=== PATIENT | female | born 1965 | race Caucasian/White ===

== ENCOUNTER 2023-11-18 11:47 | Emergency (ER) | payer BC, SELFPAY ==
[2023-11-18 11:50] VITALS: BP 107/66; PULSE 102; RESP 16; TEMP 36.7; O2SAT 97; BMI 31.2
[2023-11-18 12:39] VITALS: BP 111/57; PULSE 98; O2SAT 92
[2023-11-18] MEDS: sodium chloride 0.9% 1,000 ML 999 ML IV (12:52)
[2023-11-18] MEDS: ondansetron 2 mg/ML SDV 2 mL 4 MG IVP (12:53)
[2023-11-18 13:08] LABS: Basophils % 0.4 %; Eosinophils % 0.1 %; Hematocrit 39.4 % (36-47); Lymphocytes # 0.9 10^3/uL (0.8-4.8); Lymphocytes % 12.1 %; Mean Corpuscular HGB Conc 32.2 g/dL (30-55); Mean Corpuscular Hemoglobin 25.9 pg (27-33); Mean Corpuscular Volume 80.4 fl (85-98); Mean Platelet Volume 10.2 fL (7.4-10.4); Monocytes # 0.6 10^3/uL (0.2-0.9); Monocytes % 8.2 %; Neutrophils # 5.74 10^3/uL (1.8-7.7); Neutrophils % 78.8 %; Nucleated Red Blood Cells % 0 %; Platelet Count 322 10^3/cmm (157-399); Red Cell Distribution Width 14.4 % (12.1-15.1); White Blood Count 7.29 10^3/uL (3.29-11.43)
--- NOTE | 2023-11-18 13:08 | XR_ITS ---
WS: [id number] Portable AP semiupright chest, 11/18/2023 Clinical Data: dyspnea/cough Comparison: Portable chest, 11/12/2015 Findings: No nodules, masses or effusions are seen. The heart is normal. The pulmonary vascularity is not increased. No pneumonia or pneumothorax is seen. There are surgical clips overlying the left med iastinum at the level of the aortic arch. Monitor leads are on the chest wall. XR/XR chest 1V portable [id number] Impression: Negative chest.
[2023-11-18 13:10] VITALS: BP 95/52; PULSE 99; O2SAT 95
[2023-11-18 13:24] LABS: Alanine Aminotransferase 11 U/L (0-33); Albumin Level 4.2 g/dL (3.5-5.2); Alkaline Phosphatase 42 U/L (35-105); Anion Gap 19.2 (5-19); Aspartate Amino Transferase 18 U/L (0-32); Blood Urea Nitrogen 38 mg/dL (6-20); Carbon Dioxide 20 mmol/L (22-29); Chloride 95 mmol/L (98-107); Globulin 3.6 g/dL (1.3-4.6); Glucose 131 mg/dL (65-115); Osmolality Calculated 283 mOsm/kg (285-295); Potassium 3.2 mmol/L (3.5-5.1); Sodium 131 mmol/L (136-145); Total Bilirubin 0.2 mg/dL (0.15-1.2); Total Protein 7.8 g/dL (6.6-8.7)
--- NOTE | 2023-11-18 14:06 | W.ED.NAVMDI ---
HPI - Nausea/Vomiting/Diarrhea General: Chief complaint: Nausea/Vomiting/Diarrhea Stated complaint: n/v, diahrea Time Seen by Provider: 11/18/23 12:35 Source: patient Mode of arrival: ambulatory History of Present Illness: 58-year-old female presents emergency room for the last 3 days nausea vomiting and diarrhea chills sweats myalgias headache slight cough. Normally is not on oxygen on arrival was 88 to 92% requiring 2 L by nasal cannula to maintain oxygen sats in the mid 90s. No chest pain. No dysuria urgency or frequency. MD elicited complaint: nausea and vomiting Onset (ago): day(s) (3) Description of diarrhea: watery and semi-solid Associated nausea: Yes Associated abdominal pain: Yes Location of pain: Diffuse Pain consistency: intermittent Severity: mild Quality: cramping Exacerbating factors: eating Relieving factors: none Associated symtoms: Reports fatigue, anorexia, malaise, myalgias and nausea; Denies anxiety, bloating, change in vision, chest pain, cough, diaphoresis, decreased urine output, dizziness, dysuria, epistaxis, fecal incontinence, fevers/chills, headache(s), numbness, palpitations, rash, short of breath, syncope, tenesmus, tinnitus or weakness Review of Systems Const: Reports: fatigue and malaise; Denies: fever(s), chills or diaphoresis Eyes: Denies: change in vision ENMT: Denies: tinnitus or epistaxis Card: Denies: chest pain, palpitations or syncope Resp: Reports: dyspnea GI: Reports: abdominal pain, nausea, vomiting and diarrhea; Denies: bloating or fecal incontinence : Denies: dysuria, urinary frequency or urinary urgency Musc: Denies: neck pain or back pain Skin/Breast: Denies: rash Neuro: Denies: headache(s) or dizziness Psych: Denies: anxiety Physical Exam Const: GENERAL APPEARANCE: cooperative and comfortable ORIENTATION/CONSCIOUSNESS: Yes awake, Yes oriented to person, Yes oriented to place and Yes oriented to time HENMT: COMMON NORMALS: normocephalic, atraumatic and hearing grossly normal bilaterally HEAD & SCALP: normocephalic and atraumatic Resp: COMMON NORMALS: normal respiratory effort, No retractions, No use of accessory muscles and clear to auscultation bilaterally AUSCULTATION: clear to auscultation bilaterally Cardio: COMMON NORMALS: regular rate, regular rhythm and No murmurs present (Cardio) RATE: regular rate RHYTHM: regular rhythm GI: COMMON NORMALS: Soft to palpation and No hepatosplenomegaly present AUSCULTATION: Yes normoactive bowel sounds PALPATION: Yes Soft to palpation, No Tenderness to palpation present (GI), No Guarding due to palpation present (GI) and Yes No hepatosplenomegaly present Extremity: COMMON NORMALS: normal to inspection, capillary refill normal, no clubbing, cyanosis or edema, no calf tenderness and no pedal edema Neuro: SENSORIUM/ORIENTATION: Yes oriented to person, Yes oriented to place and Yes oriented to time Skin: COMMON NORMALS: no rashes or lesions noted GENERAL SKIN EXAM: no rashes or lesions noted Course Vital Signs: Vital signs: Vital Signs Temperature 98.7 F 11/18/23 16:46 Pulse Rate 96 11/18/23 16:46 Respiratory Rate 16 11/18/23 16:46 Blood Pressure 114/62 11/18/23 16:46 Pulse Oximetry 100 11/18/23 16:46 Oxygen Delivery Me thod Nasal Cannula 11/18/23 15:06 Oxygen Flow Rate 1 11/18/23 13:10 MDM - Nausea/Vomiting/Diarrhea Medical Decision Making Respiratory panel is negative. Initially when evaluating her at dissipated she may have COVID. Her creatinine is slightly elevated. She was given IV fluids she is feeling better. Will discharge her home clear liquid diet for the next 24 to 48 hours. Promethazine to use as needed follow-up with primary care she will need to recheck her creatinine in the next few days. Medical Records I reviewed the patient's medical records. Lab Data I reviewed the patient's lab results. 11/18/23 12:58 11/18/23 12:58 Radiology Impressions Chest X-Ray 11/18/23 13:08 Impression: Negative chest. Laboratory Results WBC 7.29 10^3/uL (3.29-11.43) 11/18/23 12:58 RBC 4.90 10^6/uL (3.85-5.65) 11/18/23 12:58 Hgb 12.70 g/dL (11.27-16.99) 11/18/23 12:58 Hct 39.4 % (36-47) 11/18/23 12:58 MCV 80.4 fl (85-98) L 11/18/23 12:58 MCH 25.9 pg (27-33) L 11/18/23 12:58 MCHC 32.2 g/dL (30-55) 11/18/23 12:58 RDW 14.4 % (12.1-15.1) 11/18/23 12:58 Plt Count 322 10^3/cmm (157-399) 11/18/23 12:58 MPV 10.2 fL (7.4-10.4) 11/18/23 12:58 Neut % (Auto) 78.8 % 11/18/23 12:58 Lymph % (Auto) 12.1 % 11/18/23 12:58 [place] % (Auto) 8.2 % 11/18/23 12:58 Eos % (Auto) 0.1 % 11/18/23 12:58 Baso % (Auto) 0.4 % 11/18/23 12:58 Neut # (Auto) 5.74 10^3/uL (1.8-7.7) 11/18/23 12:58 Lymph # (Auto) 0.9 10^3/uL (0.8-4.8) 11/18/23 12:58 [place] # (Auto) 0.6 10^3/uL (0.2-0.9) 11/18/23 12:58 Eos # (Auto) 0.0 10^3/uL (0.0-0.8) 11/18/23 12:58 Baso # (Auto) 0.0 10^3/uL (0.0-0.1) 11/18/23 12:58 Nucleated RBC % (auto) 0 % 11/18/23 12:58 Nucleated RBCs # 0.0 /100WBC 11/18/23 12:58 Sodium 131 mmol/L (136-145) L 11/18/23 12:58 Potassium 3.2 mmol/L (3.5-5.1) L 11/18/23 12:58 Chloride 95 mmol/L (98-107) L 11/18/23 12:58 Carbon Dioxide 20 mmol/L (22-29) L 11/18/23 12:58 Anion Gap 19.2 (5-19) H 11/18/23 12:58 BUN 38 mg/dL (6-20) H 11/18/23 12:58 Creatinine 1.6 mg/dL (0.5-0.9) H 11/18/23 12:58 GFR Calculation 33.0 mL/min (90-130) L 11/18/23 12:58 Glucose 131 mg/dL (65-115) H 11/18/23 12:58 Calculated Osmolality 283 mOsm/kg (285-295) L 11/18/23 12:58 Lactic Acid 1.0 mmol/L (0.5-2.2) 11/18/23 12:58 Calcium 10.0 mg/dL (8.5-10.5) 11/18/23 12:58 Total Bilirubin 0.2 mg/dL (0.15-1.2) 11/18/23 12:58 AST 18 U/L (0-32) 11/18/23 12:58 ALT 11 U/L (0-33) 11/18/23 12:58 Alkaline Phosphatase 42 U/L (35-105) 11/18/23 12:58 Total Protein 7.8 g/dL (6.6-8.7) 11/18/23 12:58 Albumin 4.2 g/dL (3.5-5.2) 11/18/23 12:58 Globulin 3.6 g/dL (1.3-4.6) 11/18/23 12:58 Urine Color Yellow (Yellow) 11/18/23 15:28 Urine Appearance Clear (CLEAR) 11/18/23 15:28 Urine pH 5 (5-7) 11/18/23 15:28 Ur Specific [place] 1.015 (1.005-1.030) 11/18/23 15:28 Urine Protein Neg (Negative) 11/18/23 15:28 Urine Glucose (UA) Norm (Normal) 11/18/23 15:28 Urine Ketones 1+ (Negative) H 11/18/23 15:28 Urine Blood Neg (Negative) 11/18/23 15:28 Urine Nitrate Negative (Negative) 11/18/23 15:28 Urine Bilirubin Neg (Negative) 11/18/23 15:28 Urine Urobilinogen Norm mg/dL (Negative) 11/18/23 15:28 Ur Leukocyte Esterase Negative (Negative) 11/18/23 15:28 Adenovirus (PCR) Not detected (NOT DETECT) 11/18/23 13:08 C. pneumoniae DNA (PCR) Not detected (NOT DETECT) 11/18/23 13:08 Coronavirus 229E (PCR) Not detected (NOT DETECT) 11/18/23 13:08 Human Metapneumovir PCR Not detected (NOT DETECT) 11/18/23 13:08 Influenza A (H1) PCR Not detected (NOT DETECT) 11/18/23 13:08 Influ A (H1/09) PCR Not detected (NOT DETECT) 11/18/23 13:08 Influenza A (H3) PCR Not detected (NOT DETECT) 11/18/23 13:08 Influenza Type A (PCR) Not detected (NOT DETECT) 11/18/23 13:08 Influenza Type B (PCR) Not detected (NOT DETECT) 11/18/23 13:08 M. pneumoniae (PCR) Not detected (NOT DETECT) 11/18/23 13:08 Parainfluenza 1 (PCR) Not detected (NOT DETECT) 11/18/23 13:08 Parainfluenza 2 (PCR) Not detected (NOT DETECT) 11/18/23 13:08 Parainfluenza 3 (PCR) Not detected (NOT DETECT) 11/18/23 13:08 Parainfluenza 4 (PCR) Not detected (NOT DETECT) 11/18/23 13:08 RSV Type A (PCR) Not detected (NOT DETECT) 11/18/23 13:08 RSV Type B (PCR) Not detected (NOT DETECT) 11/18/23 13:08 Entero/Rhino (PCR) Not detected (NOT DETECT) 11/18/23 13:08 SARS-CoV-2 (PCR) Not detected (NOT DETECT) 11/18/23 13:08 All radiology interpretation(s) finalized by discharge Discharge Plan Discharge Patient Disposition: Home Clinical Impression: Gastroenteritis Condition: Stable Prescriptions: New promethazine 25 mg tablet 25 mg PO Q6H PRN (Reason: nausea and vomiting) Qty: 20 0RF No Action atorvastatin 20 mg tablet 20 mg PO BEDTIME lisinopril-hydrochlorothiazide 20-12.5 mg tablet 1 tab PO DAILY paroxetine HCl 20 mg tablet 30 mg PO DAILY metformin 1,000 mg tablet 1,000 mg PO DAILY fenofibrate 160 mg tablet 160 mg PO DAILY Ozempic 2 mg/dose (8 mg/3 mL) pen injector 2 mg SUBCUT Q7D Discharge Orders: Discharge ED (Routine); Ordered 11/18/23 Ordered By: Rolan Butcher Discharge Diet: Clear Liquid Discharge Activity: Increase activity as tolerated Patient Instructions: Opioid Safety, Pain Management Activity Restrictions/Additional Instructions: Thank you for choosing [facility] for your healthcare needs today. It is very important that you follow up as instructed or that you return to the Emergency Department should you have concerns or if your condition changes or worsens in any way. You were seen today with complaints of nausea vomiting and generally not feeling well. Your white count was normal chest x-ray was normal your sodium and potassium were slightly low. Recommend increasing your fluid intake. Clear liquid diet for the next 24 to 48 hours then follow-up with your primary care doctor to recheck your kidney function within the next week. Coding Level of Care Code ED Tester Equipment for [facility]
[2023-11-18 15:04] LABS: Adenovirus Not Detected (NOT DETECT); Chlamydia Pneumoniae Not Detected (NOT DETECT); Coronavirus 229E,HKU1,NL63,OC4 Not Detected (NOT DETECT); Human Metapneumovirus Not Detected (NOT DETECT); Human Rhinovirus/Enterovirus Not Detected (NOT DETECT); Influenza A Not Detected (NOT DETECT); Influenza A H1 Not Detected (NOT DETECT); Influenza A H1-2009 Not Detected (NOT DETECT); Influenza A H3 Not Detected (NOT DETECT); Influenza B Not Detected (NOT DETECT); Mycoplasma Pneumoniae Not Detected (NOT DETECT); Parainfluenza Virus Type 1 Not Detected (NOT DETECT); Parainfluenza Virus Type 2 Not Detected (NOT DETECT); Parainfluenza Virus Type 3 Not Detected (NOT DETECT); Parainfluenza Virus Type 4 Not Detected (NOT DETECT); Respiratory Syncytial Virus A Not Detected (NOT DETECT); Respiratory Syncytial Virus B Not Detected (NOT DETECT); SARS-COV-2 Not Detected (NOT DETECT)
[2023-11-18 15:06] VITALS: BP 114/62; PULSE 96; O2SAT 100
[2023-11-18 15:30] VITALS: TEMP 37.1
[2023-11-18] MEDS: metoclopramide 5 mg/mL SDV 2 mL 10 MG IVP (15:30)
[2023-11-18] MEDS: sodium chloride 0.9% 500 ML 999 ML IV (15:39)
[2023-11-18 15:54] LABS: Add Urine Microscopic? NO; Charge for UA Resulting for Rev
[2023-11-18 16:20] LABS: Bilirubin Urine Neg (Negative); Blood Urine Neg (Negative); Glucose Urine UA Norm (Normal); Ketones Urine 1+ (Negative); Leukocyte Esterase Urine Negative (Negative); Nitrate Urine Negative (Negative); Protein Urine Neg (Negative); Specific Gravity, Urine 1.015 (1.005-1.030); Urine Appearance Clear (CLEAR); Urine Color Yellow (Yellow); Urobilinogen Urine Norm (Negative); pH Urine 5 (5-7)
[2023-11-18 16:46] VITALS: BP 114/62; PULSE 96; RESP 16; TEMP 37.1; O2SAT 100
== END 2023-11-18 16:49 | disposition home or self-care (01) ==
PROVIDERS: Emergency Provider Family Medicine
DX: K52.9 Noninfective gastroenteritis and colitis, unspecified (principal)
CPT/HCPCS: 36415; 71045; 80053; 81003; 83605; 85025; 87040; 87486; 87581; 87633; 96374; 96375; 99284; J2405; J2765; J7030; J7040